=== PATIENT | female | born 1990 | race Caucasian/White ===

== ENCOUNTER 2022-02-16 13:11 | Emergency (ER) | payer OTHER | END 2022-02-16 15:55 | disposition home or self-care (01) | LOC: MW.ED 13:11 | DX: S83.512A Sprain of anterior cruciate ligament of left knee, initial encounter (principal); S83.412A Sprain of medial collateral ligament of left knee, initial encounter; S83.522A Sprain of posterior cruciate ligament of left knee, initial encounter; Z86.16 Personal history of COVID-19; Y93.02 Activity, running | CPT/HCPCS: 73721-26-LT; 73721-LT; 99283; 99284 ==